=== PATIENT | male | born 1955 | race Caucasian/White ===

== ENCOUNTER 2017-10-11 17:43 | Observation (INO) | payer OTHER ==
[~2017-10-11] VITALS: Ht 182.9 cm; Wt 150.6 kg
[~2017-10-11 17:43] MED LIST: ADVA250A INH; ALBU0.63 NEB; ASPI-183 PO; CARV3.12 PO; FLUT50SP EACH NARE; FURO1TAB62 PO; INDO50CA PO; LUPR3.75 IM; MULT1TAB84 PO; PANT40TA3 PO; TRAM50TA PO; VALS1TAB70 PO; VENTAER INH; VOLT1GEL16 TOPICAL
[2017-10-11 17:45] VITALS: BP 155/112; PULSE 198; RESP 22; TEMP 98.6; O2SAT 92; O2SAT 97
[2017-10-11 18:00] VITALS: BP 143/110; PULSE 189; RESP 22; O2SAT 98
[2017-10-11] MEDS ORDERED: SODIUM CHLORIDE 0.9% FLUSH 10 ML FLUSH IVF PRN (18:00)
[2017-10-11] MEDS ORDERED: ADENOSINE IV SOLN 3 MG/ML 2 ML VIAL IV PUSH ONE ×2 (18:00→18:30)
--- NOTE | 2017-10-11 18:06 | PD ---
HPI Chief Complaint: Cardiac Complaint Time Seen by Provider: 17:52 Travel History International Travel<30 days: No Contact w/Intl Traveler<30days: No History of Present Illness HPI 62-year-old male patient with history of atrial fibrillation currently on aspirin presents to the ER today because he is having palpitations, feels like the last time he had this, his heart rate was going very fast. He denies any chest pains, shortness of breath, or any other symptoms. He has been here multiple times in the past for similar problems. He has not been on any new medications. 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 Modifying Factors: None Associated Signs & Symptoms: Palpitations, fast heart rate Risk Factors: History of tachycardia dysrhythmias, A. roselia PFSH Past Medical History Arthritis: Yes Asthma: No Autoimmune Disease: No Blood Disorders: No Anxiety: No Depression: No Heart Rhythm Problems: No Cancer: Yes (PROSTATE) Cardiovascular Problems: Yes High Cholesterol: Yes Chemotherapy: No Chest Pain: No Congestive Heart Failure: No Diabetes: No Endocrine: No Gastrointestinal Disorders: Yes GERD: Yes Genitourinary: Yes Hiatal Hernia: No Hypertension: Yes Immune Disorder: No Implanted Vascular Access Dvce: No Musculoskeletal: Yes (NECK PAIN) Neurologic: No Reproductive: No Respiratory: Yes Radiation Therapy: No Thyroid Disease: No Ulcer: No Past Surgical History Oral Surgery: Yes (TEETH EXTRACTED) Pacemaker: No Prostatectomy: Yes Other Surgery: Yes (prostatectomy) Social History Alcohol Use: Yes (OCC) Tobacco Use: No Substance Use: No Allergies-Medications (Allergen,Severity, Reaction): Coded Allergies: amlodipine (Unverified Allergy, Intermediate, Hives, 10/11/17) cetirizine (Verified Allergy, Intermediate, Hives, 10/11/17) lovastatin (Verified Allergy, Intermediate, Hives, 10/11/17) penicillin G (Verified Allergy, Unknown, 10/11/17) Mother is allergic to PCN so the patient has never had it. nifedipine (Verified Adverse Reaction, Severe, 10/11/17) BLE ankles become very swollen Reported Meds & Prescriptions Reported Meds & Active Scripts Active Advair Diskus Inh (Fluticasone-Salmeterol Inh) 250-50 Mcg/Blist Aer 1 Puff INH BID Rinse mouth after use. Tramadol (Tramadol HCl) 50 Mg Tab 50 Mg PO Q6H PRN Valsartan 320 Mg Tab 320 Mg PO DAILY Fluticasone Nasal [place] 50 Mcg/Act Naspr 50 Mcg EACH NARE BID 50 mcg/spray Carvedilol 3.125 Mg Tab 3.125 Mg PO BID Albuterol Neb (Albuterol Sulfate) 0.63 Mg/3 Ml Neb 0.63 Mg NEB Q4HR NEB PRN Indomethacin 50 Mg Cap 50 Mg PO TID Take with food, milk, or antacids to decrease stomach adverse effects. Lasix (Furosemide) 20 Mg Tab 20 Mg PO BID Ventolin Hfa 18 GM Inh (Albuterol Sulfate) 90 Mcg/Act Aer 1 Puff INH Q4H PRN Reported Multi-Vitamin Daily (Multiple Vitamin) 1 Tab Tab 1 Tab PO DAILY Aspirin 325 Mg Tab 325 Mg PO BID Review of Systems Except as stated in HPI: all other systems reviewed are Neg Physical Exam Narrative GENERAL: Well-developed elderly white male patient currently in mild distress. Awake and oriented 3. SKIN: Focused skin assessment warm/dry. HEAD: Atraumatic. Normocephalic. EYES: Pupils equal and round. No scleral icterus. No injection or drainage. ENT: No nasal bleeding or discharge. Mucous membranes pink and moist. NECK: Trachea midline. No JVD. Supple. CARDIOVASCULAR: Fast and irregularly irregular. RESPIRATORY: No accessory muscle use. Clear to auscultation. Breath sounds equal bilaterally. GASTROINTESTINAL: Abdomen soft, non-tender, nondistended. Hepatic and splenic margins not palpable. MUSCULOSKELETAL: No obvious deformities. No clubbing. No cyanosis. No edema. NEUROLOGICAL: Awake and alert. No obvious cranial nerve deficits. Motor grossly within normal limits. Normal speech. PSYCHIATRIC: Appropriate mood and affect; insight and judgment normal. Data Data Last Documented VS Vital Signs Date Time Temp Pulse Resp B/P (MAP) Pulse Ox O2 Delivery O2 Flow Rate FiO2 10/11/17 18:30 70 18 132/69 (90) 96 Nasal Cannula 4.00 10/11/17 18:30 98.6 Orders Orders Electrocardiogram (10/11/17 17:52) Complete Blood Count With Diff (10/11/17 17:52) Comprehensive Metabolic Panel (10/11/17 17:52) Magnesium (Mg) (10/11/17 17:52) Ckmb (Isoenzyme) Profile (10/11/17 17:52) Troponin I (10/11/17 17:52) Act Partial Throm Time (Ptt) (10/11/17 17:52) Prothrombin Time / Inr (Pt) (10/11/17 17:52) Chest, Single Ap (10/11/17 17:52) Ecg Monitoring (10/11/17 17:52) Iv Access Insert/Monitor (10/11/17 17:52) Oximetry (10/11/17 17:52) Sodium Chloride 0.9% Flush (Ns Flush) (10/11/17 18:00) Adenosine Inj (Adenocard Inj) (10/11/17 18:00) Diltiazem Inj (Cardizem Inj) (10/11/17 18:15) Diltiazem Inj (Cardizem Inj) (10/11/17 18:15) Sodium Chloride 0.9% Flush (Ns Flush) (10/11/17 18:15) Diltiazem Inj (Cardizem Inj) (10/11/17 18:08) CKMB (10/11/17 18:02) CKMB% (10/11/17 18:02) Adenosine Inj (Adenocard Inj) (10/11/17 18:30) Diltiazem (Cardizem) (10/11/17 19:00) Apixaban (Eliquis) (10/11/17 19:00) Consult Cardiology (10/11/17 ) Labs Laboratory Tests Test 10/11/17 18:02 White Blood Count 12.9 TH/MM3 Red Blood Count 5.69 MIL/MM3 Hemoglobin 16.9 GM/DL Hematocrit 49.3 % Mean Corpuscular Volume 86.7 FL Mean Corpuscular Hemoglobin 29.8 PG Mean Corpuscular Hemoglobin Concent 34.3 % Red Cell Distribution Width 15.5 % Platelet Count 196 TH/MM3 Mean Platelet Volume 9.5 FL Neutrophils (%) (Auto) 68.1 % Lymphocytes (%) (Auto) 23.0 % Monocytes (%) (Auto) 5.5 % Eosinophils (%) (Auto) 2.9 % Basophils (%) (Auto) 0.5 % Neutrophils # (Auto) 8.7 TH/MM3 Lymphocytes # (Auto) 3.0 TH/MM3 Monocytes # (Auto) 0.7 TH/MM3 Eosinophils # (Auto) 0.4 TH/MM3 Basophils # (Auto) 0.1 TH/MM3 CBC Comment AUTO DIFF Differential Comment AUTO DIFF CONFIRMED Platelet Estimate NORMAL Platelet Morphology Comment NORMAL Red Cell Morphology Comment NORMAL Prothrombin Time 10.4 SEC Prothromb Time International Ratio 1.0 RATIO Activated Partial Thromboplast Time 24.7 SEC Blood Urea Nitrogen 16 MG/DL Creatinine 1.10 MG/DL Random Glucose 130 MG/DL Total Protein 7.4 GM/DL Albumin 3.5 GM/DL Calcium Level 8.8 MG/DL Magnesium Level 2.1 MG/DL Alkaline Phosphatase 90 U/L Aspartate Amino Transf (AST/SGOT) 28 U/L Alanine Aminotransferase (ALT/SGPT) 32 U/L Total Bilirubin 0.6 MG/DL Sodium Level 143 MEQ/L Potassium Level 3.7 MEQ/L Chloride Level 107 MEQ/L Carbon Dioxide Level 26.5 MEQ/L Anion Gap 10 MEQ/L Estimat Glomerular Filtration Rate 68 ML/MIN Total Creatine Kinase 356 U/L Creatine Kinase MB 7.8 NG/ML Creatine Kinase MB % 2.2 % Troponin I 0.02 NG/ML MDM Medical Decision Making Medical Screen Exam Complete: Yes Emergency Medical Condition: Yes Medical Record Reviewed: Yes Interpretation(s) EKG shows SVT with a rate of 200 bpm. Differential Diagnosis Tachydysrhythmia versus metabolic issues versus anxiety attack Narrative Course Patient was given a dose of 6 mg of adenosine without significant improvement or effect, 12 mg was then given with resultant improvement in rate to a rate of 90 bpm. However, patient's tachydysrhythmia returned after about 10 minutes and he had to be given Cardizem 20 mg IV with resultant improvement in rate control with rates in the 70s. Case was discussed with Dr. Gallardo who states that at this point he would put the patient on p.o. Cardizem 60 mg now and every 6 hours and then Cardizem 240 at 6 AM. He would also put the patient on Eliquis twice daily. He states he would like to be consulted on the case. Case is discussed with Dr. Baig for admission. Diagnosis Primary Impression: SVT (supraventricular tachycardia) Admitting Information Admitting Physician Requests: Admit Abel Tyson MD Oct 11, 2017 18:06
[2017-10-11] MEDS ORDERED: DILTIAZEM HCL 25 MG/5 ML VIAL ONE (18:08)
[2017-10-11 18:09] LABS: AUTOMATED NEUTROPHIL # 8.7 TH/MM3 (1.8-7.7); BASOPHIL # 0.1 TH/MM3 (0-0.2); BASOPHIL % 0.5 % (0.0-2.0); EOSINOPHIL # 0.4 TH/MM3 (0-0.4); EOSINOPHIL % 2.9 % (0.0-4.0); HEMATOCRIT 49.3 % (39.0-51.0); HEMOGLOBIN 16.9 GM/DL (13.0-17.0); MEAN CELL VOLUME 86.7 FL (80.0-100.0); MEAN CORPUSCULAR HEMOGLOBIN 29.8 PG (27.0-34.0); MEAN CORPUSCULAR HGB CONC 34.3 % (32.0-36.0); MEAN PLATELET VOLUME 9.5 FL (7.0-11.0); MONO % 5.5 % (0.0-8.0); MONOCYTE # 0.7 TH/MM3 (0-0.9); NEUT % 68.1 % (16.0-70.0); PLATELET COUNT 196 TH/MM3 (150-450); RED BLOOD COUNT 5.69 MIL/MM3 (4.50-5.90); RED CELL DISTRIBUTION WIDTH 15.5 % (11.6-17.2); WHITE BLOOD COUNT 12.9 TH/MM3 (4.0-11.0)
[2017-10-11 18:10] VITALS: BP 114/83; PULSE 192; RESP 20; O2SAT 92
--- NOTE | 2017-10-11 18:13 | RADRPT ---
EXAM DATE/TIME: 10/11/2017 18:01 [facility] COMPARISON: CHEST SINGLE AP, May 05, 2016, 23:37. INDICATIONS : Palpitations. MEDICAL HISTORY : Hypertension. Hypercholesterolemia. Irritable bowel syndrome, Hyperlipidemia, AFIB, COPD, GERD, Prost ate cancer, Arthritis, Gout SURGICAL HISTORY : Prostatectomy ENCOUNTER: Initial ACUITY: 1 day PAIN SCORE: 7/10 LOCATION: Bilateral chest FINDINGS: The heart size is enlarged. There is increased density at the left lateral chest. The right lung is g rossly clear. CONCLUSION: 1. Cardiomegaly. 2. Increased density at the left lateral base representing some degree of atelectasis, consolidation, or effusion. Magno Pickett MD on October 11, 2017 at 18:09 Board Certified Radiologist. This report was verified electronically.
[2017-10-11 18:15] VITALS: BP 135/76; PULSE 188; PULSE 75; RESP 22; O2SAT 92
[2017-10-11] MEDS ORDERED: DILTIAZEM HCL 25 MG/5 ML VIAL IV PUSH ONE (18:15)
[2017-10-11] MEDS ORDERED: DILTIAZEM INJ 125 MG in SODIUM CHLORIDE 0.9% INJ 100 ML IV PRN (18:15)
[2017-10-11] MEDS ORDERED: SODIUM CHLORIDE 0.9% FLUSH 10 ML FLUSH IV FLUSH PRN ×2 (18:15→19:15)
[2017-10-11 18:17] LABS: CHLORIDE 107 MEQ/L (98-107); SODIUM (NA) 143 MEQ/L (136-145)
[2017-10-11 18:20] LABS: CALCIUM 8.8 MG/DL (8.5-10.1)
[2017-10-11 18:21] LABS: ALBUMIN 3.5 GM/DL (3.4-5.0); BICARBONATE 26.5 MEQ/L (21.0-32.0); BLOOD UREA NITROGEN 16 MG/DL (7-18); GLUCOSE,RANDOM 130 MG/DL (74-106); MAGNESIUM 2.1 MG/DL (1.5-2.5)
[2017-10-11] MEDS ORDERED: MULT-65 PO (18:22)
[2017-10-11 18:24] LABS: ALT (GPT) 32 U/L (12-78); AST (GOT) 28 U/L (15-37); GLOMERULAR FILTRATION RATE 68 ML/MIN (>89); PROTHROMBIN TIME - PATIENT 10.4 SEC (9.8-11.6)
[2017-10-11 18:25] LABS: TOTAL BILIRUBIN ADULT 0.6 MG/DL (0.2-1.0); TOTAL PROTEIN 7.4 GM/DL (6.4-8.2)
[2017-10-11 18:27] LABS: ALKALINE PHOSPHATASE 90 U/L (45-117)
[2017-10-11 18:29] LABS: TROPONIN I 0.02 NG/ML (0.02-0.05)
[2017-10-11 18:30] VITALS: BP_SYST 132; BP_SYST 135; BP_DIAS 69; BP_DIAS 76; PULSE 70; PULSE 73; RESP 18; RESP 22; TEMP 98.6; O2SAT 92; O2SAT 96
[2017-10-11] MEDS ORDERED: APIXABAN 5 MG TABLET PO ONE (19:00)
[2017-10-11] MEDS ORDERED: DILTIAZEM HCL 60 MG TAB PO ONE (19:00)
[2017-10-11] MEDS ORDERED: MAGNESIUM HYDROXIDE SUSP 30 ML CUP PO PRN (19:15)
[2017-10-11] MEDS ORDERED: ACETAMINOPHEN/HYDROcodone 325 MG/5 MG TAB PO PRN (19:15)
[2017-10-11] MEDS ORDERED: ONDANSETRON HCL 4 MG/2 ML VIAL IVP PRN (19:15)
[2017-10-11] MEDS ORDERED: BISACODYL 10 MG SUPP RECTAL PRN (19:15)
[2017-10-11] MEDS ORDERED: MORPHINE SULFATE 2 MG/ML SYRINGE IV PUSH PRN (19:15)
[2017-10-11] MEDS ORDERED: LACTULOSE SYRUP 20 GM/30 ML CUP PO PRN (19:15)
[2017-10-11] MEDS ORDERED: SENNOSIDES 8.6 MG TAB PO PRN (19:15)
[2017-10-11] MEDS ORDERED: ACETAMINOPHEN 325 MG TAB PO PRN (19:15)
[2017-10-11] MEDS ORDERED: BUDESONIDE-FORMOTEROL 160/4.5 MCG INHALER INH SCH (19:30)
[2017-10-11 19:57] VITALS: BP 133/75; PULSE 74; RESP 18; O2SAT 98
[2017-10-11] MEDS ORDERED: DOCUSATE SODIUM 50 MG/SENNA 8.6 MG TAB PO SCH (21:00)
[2017-10-11] MEDS ORDERED: FUROSEMIDE 20 MG TAB PO SCH (21:00)
[2017-10-11] MEDS ORDERED: SODIUM CHLORIDE 0.9% FLUSH 10 ML FLUSH IV FLUSH SCH (21:00)
[2017-10-11] MEDS ORDERED: CARVEDILOL 3.125 MG TAB PO SCH (21:00)
[2017-10-11] MEDS ORDERED: FLUTICASONE PROPIONATE 50 MCG/ACT 16 GM NASAL SPRAY EACH NARE SCH (21:00)
[2017-10-11] MEDS ORDERED: ASPIRIN 325 MG TAB PO SCH (21:00)
[2017-10-12] MEDS ORDERED: DILTIAZEM HCL 60 MG TAB PO ONE
[2017-10-12] MEDS ORDERED: MULTIVITAMIN TAB PO SCH (09:00)
[2017-10-12] MEDS ORDERED: DILTIAZEM-CD 240 MG CAP ER PO SCH (09:00)
--- NOTE | 2017-10-12 19:03 | EKG ---
Date Performed: 10/11/2017 Time Performed: 18:02:34 PTAGE: 62 years EKG: Sinus rhythm WITH FREQUENT VENTRICULAR PREMATURE COMPLEXES NONSPECIFIC ST & T-WAVE ABNORMALITY Compared to previo us tracing, PVCs are new. ST changes are mor prominent Clinical correlation is recommended ABNORMAL R HYTHM ECG PREVIOUS TRACING : 05/05/2016 23.28 DOCTOR: Avery Gallardo Interpretating Date/Time 10/12/2017 19:02:18
== END 2017-10-11 19:55 | disposition left against medical advice (07) ==
LOC: PHED 17:43 → PHEDA 19:12
PROVIDERS: ADMIT Hospitalist; ATTEND Hospitalist
DX: I47.1 Supraventricular tachycardia (principal); I48.91 Unspecified atrial fibrillation; I49.3 Ventricular premature depolarization; I10 Essential (primary) hypertension; E78.00 Pure hypercholesterolemia, unspecified; J44.9 Chronic obstructive pulmonary disease, unspecified; K21.9 Gastro-esophageal reflux disease without esophagitis; M19.90 Unspecified osteoarthritis, unspecified site; Z79.82 Long term (current) use of aspirin; Z85.46 Personal history of malignant neoplasm of prostate
CPT/HCPCS: 71045; 80053; 82550; 82552; 83735; 84484; 85025; 85610; 85730; 93005; 96374; 96375; 99285; G0378; J0153